=== PATIENT | male | born 1990 | race Caucasian/White ===

== ENCOUNTER 2017-12-26 15:11 | Emergency (ER) | payer OTHER ==
[~2017-12-26] VITALS: Ht 185.4 cm; Wt 136.1 kg
[~2017-12-26 15:11] MED LIST: MOTRIN IB200 MG PO; PANTOPRAZOLE SO40 MG PO; REGLAN10 MG PO
[2017-12-26] MEDS ORDERED: FLEET ENEMA-AD118 ML PR (16:35)
[2017-12-26] MEDS ORDERED: SENNA8.6 MG PO (16:35)
[2017-12-26] MEDS ORDERED: MIRALAX119 GM PO (16:35)
[2017-12-26] MEDS ORDERED: BENTYL20 MG PO (16:36)
[2017-12-26] MEDS ORDERED: ZOFRAN ODT4 MG PO (16:36)
[2017-12-26 17:51] VITALS: BP 122/82
== END 2017-12-26 17:52 | disposition home or self-care (01) ==
LOC: EME 15:11
DX: K59.00 Constipation, unspecified (principal); F17.200 Nicotine dependence, unspecified, uncomplicated
CPT/HCPCS: 74022; 99281; 99284